=== PATIENT | male | born 1930 | race Caucasian/White ===

== ENCOUNTER 2018-03-19 08:56 | Day surgery (SDC) | payer MEDICARE, BC ==
[~2018-03-19] VITALS: Ht 182.9 cm; Wt 82.3 kg
[~2018-03-19 08:56] MED LIST: ASPI325T; DEMA10TA; EZET10; GLYB1TAB51; METFORMIN; PIOG30; PREV30CA36; REME30TA; TELM40; ZOCO80TA
[2018-03-19 09:30] VITALS: BP 146/79; PULSE 77; RESP 18; TEMP 98; O2SAT 98
[2018-03-19] MEDS ORDERED: SODIUM CHLORIDE 0.9% 1000 ML IV SCH (09:30)
[2018-03-19] MEDS ORDERED: LEVOFLOXACIN 500 MG PREMIX 100 ML - biliary drainage catheter/stent insertion IV SCH (09:30)
[2018-03-19] MEDS ORDERED: ATOR40TA16 PO (09:47)
[2018-03-19] MEDS ORDERED: FINA5TAB2 (09:47)
[2018-03-19] MEDS ORDERED: BENZ1CAP54 PO (09:47)
[2018-03-19] MEDS ORDERED: TRAM50TA PO (09:47)
[2018-03-19] MEDS ORDERED: CITRSOL4 PO (09:47)
[2018-03-19] MEDS ORDERED: URIB118C (09:47)
[2018-03-19] MEDS ORDERED: MILKSUS PO (09:47)
[2018-03-19] MEDS ORDERED: HUMALOG SQ (09:47)
[2018-03-19] MEDS ORDERED: MEGE40SU PO (09:47)
[2018-03-19] MEDS ORDERED: CARV3.12 PO (09:47)
[2018-03-19] MEDS ORDERED: DULC10SU3 RECTAL (09:47)
[2018-03-19] MEDS ORDERED: MIRT30TA PO (09:47)
[2018-03-19] MEDS ORDERED: GLYB5TAB3 PO (09:47)
[2018-03-19] MEDS ORDERED: PANT40TA3 PO (09:47)
[2018-03-19] MEDS ORDERED: IPRASOL INH (09:47)
[2018-03-19] MEDS ORDERED: LISI2.5T3 PO (09:47)
[2018-03-19] MEDS ORDERED: DOCU100C15 PO (09:47)
[2018-03-19] MEDS ORDERED: ARIC23TA PO (09:47)
[2018-03-19] MEDS ORDERED: ENEMENE5 (09:47)
[2018-03-19] MEDS ORDERED: RAPA8CAP PO (09:47)
[2018-03-19 10:02] LABS: AUTOMATED NEUTROPHIL # 5.8 TH/MM3 (1.8-7.7); BASOPHIL # 0.1 TH/MM3 (0-0.2); BASOPHIL % 0.8 % (0.0-2.0); EOSINOPHIL # 0.3 TH/MM3 (0-0.4); EOSINOPHIL % 2.8 % (0.0-4.0); HEMATOCRIT 34.1 % (39.0-51.0); HEMOGLOBIN 11.8 GM/DL (13.0-17.0); LYMPH % 32.9 % (9.0-44.0); LYMPHOCYTE # 3.3 TH/MM3 (1.0-4.8); MEAN CELL VOLUME 94.6 FL (80.0-100.0); MEAN CORPUSCULAR HEMOGLOBIN 32.8 PG (27.0-34.0); MEAN CORPUSCULAR HGB CONC 34.7 % (32.0-36.0); MEAN PLATELET VOLUME 7.1 FL (7.0-11.0); MONO % 6.3 % (0.0-8.0); MONOCYTE # 0.6 TH/MM3 (0-0.9); NEUT % 57.2 % (16.0-70.0); PLATELET COUNT 333 TH/MM3 (150-450); RED BLOOD COUNT 3.61 MIL/MM3 (4.50-5.90); RED CELL DISTRIBUTION WIDTH 14.5 % (11.6-17.2); WHITE BLOOD COUNT 10.1 TH/MM3 (4.0-11.0)
[2018-03-19 10:11] LABS: INTERNATIONAL NORMALIZED RATIO 1.1 RATIO; PROTHROMBIN TIME - PATIENT 11.6 SEC (9.8-11.6)
[2018-03-19] MEDS ORDERED: MIDAZOLAM HCL 2 MG/2 ML VIAL ONE (10:35)
[2018-03-19 11:45] VITALS: BP 121/83; PULSE 74; RESP 20; TEMP 96; O2SAT 94
[2018-03-19 12:00] VITALS: BP_SYST 157; BP_DIAS 65; BP_DIAS 83; PULSE 78; RESP 20; O2SAT 96
--- NOTE | 2018-03-19 12:12 | PD.RAD ---
Post Procedure Progress Note Pre Procedure Diagnosis: (1) Urinary retention Post Procedure Diagnosis: (1) Urinary retention Procedure Date: Mar 19, 2018 Supervising Radiologist: Benson Gonzales Proceduralist/Assist: Angy Romero, RT(R)(CV), Brenda Hunt RT(R) Anesthesia: Local, Analgesia, Conscious Sedation Plan of Activity Patient to Unit: ROPU Patient Condition: Good See PACS Report for procedural detail/treatment Drainage Procedure Procedure 1 Imaging Guidance: Fluoroscopy Procedure Type: Suprapubic Tube Procedure: Placement Faroese: 16 Drainage: Apex drainage Fluid Description: Benson Rees MD Mar 19, 2018 12:12
[2018-03-19 12:30] VITALS: BP 136/66; PULSE 77; RESP 18; O2SAT 96
[2018-03-19 13:00] VITALS: BP 107/49; PULSE 77; RESP 18; O2SAT 96
[2018-03-19 13:30] VITALS: BP 118/81; PULSE 77; RESP 18; O2SAT 96
--- NOTE | 2018-03-19 17:44 | RADRPT ---
EXAM DATE/TIME: 03/19/2018 11:15 [facility] COMPARISON: No previous studies available for comparison. INDICATIONS : Patient with urinary retentsion. MEDICAL HISTORY : !. stroke 2.copd 3. A fib 4. Enlarged prostrat 5. DM 6. CAD SURGICAL HISTORY : 1. bilateral cataracts 2. Bladder lift 3. coronary stents 4.CABG ENCOUNTER: Initial ACUITY: 2 months PAIN SCORE: 0/10 FLUORO TIME: 1.65 minutes IMAGE SERIES: 5 SEDATION TIME: 30 minutes CONTRAST: 30 cc Omnipaque 350 (iohexol) Snell catheter MEDICATION(S): 1.) 2 mg midazolam (Versed) IV 2.) 100 mcg fentanyl (Sublimaze) IV Prophylactic antibiotics were administered with appropriate pre-procedure timing. PROCEDURE : 1. Ultrasound localization of the bladder. 2. Suprapubic catheter placement. 3. Conscious sedation with continuous EKG and oximetry monitoring. The risks, benefits and alternatives to the procedure were explained and verbal and written consent w as obtained. The site was prepped in sterile fashion. Full sterile technique was used, including ca p, mask, sterile gloves and gown and a large sterile sheet. Hand hygiene and 2% chlorhexidine and/or betadine/alcohol prep was utilized per protocol for cutaneous antisepsis. Sterile gel and sterile p robe cover were utilized for ultrasound guidance. The skin and subcutaneous tissues were infiltrated with local anesthetic solution. Using ultrasound and fluoroscopic guidance the urinary bladder was localized. Just above the pubic s ymphysis in the midline a dermatotomy was made and serial dilatation was performed to accept a 16 [place] nch Snell catheter. The balloon was inflated and positive contrast was injected to document intralum inal position. Conscious sedation was performed with the prescribed dosages and duration as above in the presence of an independent trained radiology nurse to assist in the monitoring of the patient. EKG and oximetry remained stable throughout the procedure. The patient tolerated the procedure well and there were n o complications. The patient was sent to post anesthesia recovery in stable condition. CONCLUSION: Uncomplicated suprapubic catheter placement. Benson Gonzales MD on March 19, 2018 at 17:40 Board Certified Radiologist. This report was verified electronically.
== END 2018-03-19 14:00 | disposition home or self-care (01) ==
LOC: HROP 08:56 → HRIP 08:57 → HROP 14:00
PROVIDERS: ATTEND Urology
DX: R33.9 Retention of urine, unspecified (principal); I48.91 Unspecified atrial fibrillation; I25.10 Atherosclerotic heart disease of native coronary artery without angina pectoris; J44.9 Chronic obstructive pulmonary disease, unspecified; E11.9 Type 2 diabetes mellitus without complications; Z95.1 Presence of aortocoronary bypass graft; Z95.5 Presence of coronary angioplasty implant and graft; Z86.73 Personal history of transient ischemic attack (TIA), and cerebral infarction without residual deficits; Z79.4 Long term (current) use of insulin
CPT/HCPCS: 51102; 77002; 85025; 85610; 85730; 99152; C1769; C1894; J1956; J2250; J3010; J7030